=== PATIENT | female | born 1950 | race African-American/Black ===

== ENCOUNTER 2017-09-19 14:49 | Emergency (ER) | payer MEDICARE, MEDICAID ==
[~2017-09-19] VITALS: Ht 170.2 cm; Wt 127.0 kg
[2017-09-19] MEDS ORDERED: FURO20TA4 PO (15:03)
[2017-09-19] MEDS ORDERED: CALCIUM (15:03)
[2017-09-19] MEDS ORDERED: GLIM2TAB2 PO (15:03)
[2017-09-19] MEDS ORDERED: ATOR20TA65 PO (15:03)
[2017-09-19] MEDS ORDERED: GABA300S PO (15:03)
[2017-09-19] MEDS ORDERED: LIRA0.6P2 SQ (15:03)
[2017-09-19] MEDS ORDERED: INDA2.5T5 PO (15:03)
[2017-09-19] MEDS ORDERED: INSU100I22 SQ (15:03)
[2017-09-19] MEDS ORDERED: INSASP SUBCUT (15:03)
[2017-09-19] MEDS ORDERED: ASPI-986 PO (15:03)
[2017-09-19] MEDS ORDERED: ASPI-1159 PO (15:03)
[2017-09-19] MEDS ORDERED: AMIT25TA9 PO (15:03)
[2017-09-19] MEDS ORDERED: ATEN50TA PO (15:03)
[2017-09-19] MEDS ORDERED: ISOS60TA4 PO (15:03)
[2017-09-19] MEDS ORDERED: DIPH25CA83 PO (15:03)
[2017-09-19] MEDS ORDERED: ACETAMINOPHEN WITH CODEINE 300/30MG TABLET PO ONE (17:30)
[2017-09-19 18:42] VITALS: BP 173/81
== END 2017-09-19 18:43 | disposition home or self-care (01) ==
LOC: ER 15:18
DX: R07.89 Other chest pain (principal); I10 Essential (primary) hypertension; E78.00 Pure hypercholesterolemia, unspecified; E11.9 Type 2 diabetes mellitus without complications; Z90.710 Acquired absence of both cervix and uterus; Z79.82 Long term (current) use of aspirin; Z79.4 Long term (current) use of insulin
CPT/HCPCS: 71010; 93005; 99284

== ENCOUNTER 2023-07-09 17:01 | Inpatient (IN) | payer MEDICARE, MEDICAID ==
[~2023-07-09] VITALS: Ht 170.2 cm; Wt 120.2 kg
[~2023-07-09 17:01] MED LIST: AMIT25TA9 PO; ASPI-1497 PO; ASPI-986 PO; ATEN50TA PO; ATOR20TA65 PO; CALCIUM; DIPH25CA83 PO; FURO20TA4 PO; GABA300S4 PO; GLIM2TAB30 PO; INDA2.5T5 PO; INSASP SUBCUT; INSU100I22 SQ; ISOS60TA76 PO; LIRA0.6P2 SQ
[2023-07-09 18:08] LABS: BASOPHILS % 0.4 % (0.0-2.0); EOSINOPHILS % 0.9 % (0.0-5.0); HEMOGLOBIN. 11.3 g/dL (12.0-16.0); LYMPHOCYTES % 32.6 % (20.0-50.0); MEAN CORPUSCULAR HEMOGLOBIN 27.9 pg (28.0-32.0); MEAN CORPUSCULAR HGB CONC 32.2 g/dL (31.0-37.0); MEAN CORPUSCULAR VOLUME 86.5 fL (81.0-99.0); MEAN PLATELET VOLUME 8.5 fl (7.4-10.4); MONOCYTES % 6.4 % (2.0-8.0); NEUTROPHILS % 59.7 % (40.0-76.0); PLATELET 276 x1000/uL (130-400); RED BLOOD CELL COUNT 4.04 mill/uL (4.2-5.4); WHITE BLOOD COUNT 7.8 x1000/uL (4.5-11.0)
[2023-07-09 18:14] LABS: CHLORIDE 109 mEq/L (98-107); INDEX HEMOLYSI 1 (1-3); INDEX ICTERIC 1 (1-4); INDEX LIPEMIC 1 (1-3); POTASSIUM 3.9 mEq/L (3.5-5.1); SODIUM 139 mEq/L (136-145)
[2023-07-09 18:23] LABS: ALANINE AMINOTRANSFERASE 36 IU/L (13-61); ASPARTATE AMINOTRANSFERASE 23 IU/L (15-37); BILIRUBIN TOTAL 0.8 mg/dL (0.1-1.0); CALCIUM 9.1 mg/dL (8.5-10.1); CARBON DIOXIDE 23 mEq/L (21-32); CREATININE 1.4 mg/dL (0.6-1.3); GLUCOSE 386 mg/dL (70-105); PROTEIN TOTAL 7.6 g/dL (6.0-8.3); UREA NITROGEN BLOOD 25 mg/dL (7-21)
[2023-07-09] MEDS ORDERED: SODIUM CHLORIDE 0.9% 1,000 ML IV ONE (19:00)
[2023-07-09 21:40] LABS: CLARITY URINE CLOUDY (CLEAR); COLOR URINE YELLOW (YELLOW); GLUCOSE URINE 3+ (NEGATIVE); KETONES URINE 1+ (NEGATIVE); LEUKOCYTE ESTERASE URINE NEGATIVE (NEGATIVE); NITRITE URINE NEGATIVE (NEGATIVE); OCCULT BLOOD URINE 3+ (NEGATIVE); PROTEIN URINE 4+ (NEGATIVE); SPECIFIC GRAVITY URINE 1.022 (1.005-1.030); UROBILINOGEN URINE 0.2 E.U./dL (0.2-1.0)
[2023-07-09 22:14] LABS: BACTERIA URINE 2+; SQUAMOUS EPITHELIAL CELL URINE 1+ /lpf (RARE/1+); YEAST URINE 2+
[2023-07-09 22:16] LABS: RBC URINE 25-50 /hpf (0-2)
[2023-07-09] MEDS ORDERED: ZOLPIDEM TARTRATE 5MG TABLET PO PRN (23:45)
[2023-07-09] MEDS ORDERED: ACETAMINOPHEN 325MG TABLET PO PRN (23:45)
[2023-07-09] MEDS ORDERED: DIPHENHYDRAMINE 50MG/ML VIAL IV PRN (23:45)
[2023-07-09] MEDS ORDERED: CLONIDINE 0.1MG TABLET PO ONE (23:45)
[2023-07-09] MEDS ORDERED: LOPERAMIDE HCL 2MG CAPSULE PO PRN (23:45)
[2023-07-09] MEDS ORDERED: DEXTROSE 50% WATER 50ML SYRINGE IV PRN (23:45)
[2023-07-09] MEDS: SODIUM CHLORIDE 0.9% 1,000 ML IV SCH (23:45)
[2023-07-09] MEDS ORDERED: ONDANSETRON HCL 4MG/2ML INJ IV PRN (23:45)
[2023-07-10] VITALS: BP 202/59; PULSE 70; RESP 20; TEMP 98.5
[2023-07-10 01:00] VITALS: BP 178/78; PULSE 69; RESP 19; TEMP 98.8
[2023-07-10] MEDS: ACETAMINOPHEN 325MG TABLET PO PRN ×2 (01:07→20:55)
[2023-07-10] MEDS: INSULIN GLARGINE 100 UNITS/ML SUBCUT SCH ×2 (01:12→20:56)
[2023-07-10 04:00] VITALS: BP 197/62; PULSE 63; RESP 18; TEMP 98
[2023-07-10] MEDS: GABAPENTIN 300MG CAPSULE PO SCH ×3 (06:00→20:55)
[2023-07-10] MEDS: CLONIDINE 0.1MG TABLET PO PRN (06:19)
[2023-07-10] MEDS: BLOOD SUGAR DIAGNOSTIC STRIP TEST SCH ×4 (06:49→20:53)
[2023-07-10] MEDS: FLUCONAZOLE 100MG TABLET PO SCH (08:46)
[2023-07-10] MEDS: ASPIRIN 81MG EC TABLET PO SCH (08:46)
[2023-07-10] MEDS: ATENOLOL 50 MG TABLET PO SCH (08:47)
[2023-07-10] MEDS: INSULIN LISPRO 100 UNITS/ML SUBCUT SCH ×4 (08:57→20:56)
[2023-07-10] MEDS: SODIUM CHLORIDE 0.9% 1,000 ML IV SCH ×2 (09:45→19:45)
[2023-07-10 20:00] VITALS: BP 171/76; PULSE 64; RESP 17; TEMP 97.4
[2023-07-10] MEDS ORDERED: AMITRIPTYLINE 25MG TABLET PO SCH (21:00)
[2023-07-10] MEDS ORDERED: ATORVASTATIN CALCIUM 20MG TABLET PO SCH (21:00)
[2023-07-11] VITALS: BP 120/68; PULSE 68; RESP 17; TEMP 97.2
[2023-07-11 04:00] VITALS: BP 181/71; PULSE 79; RESP 18; TEMP 99.3
[2023-07-11] MEDS: SODIUM CHLORIDE 0.9% 1,000 ML IV SCH ×2 (05:45→15:46)
[2023-07-11] MEDS: GABAPENTIN 300MG CAPSULE PO SCH ×2 (06:59→12:59)
[2023-07-11] MEDS: CLONIDINE 0.1MG TABLET PO PRN (06:59)
[2023-07-11] MEDS: BLOOD SUGAR DIAGNOSTIC STRIP TEST SCH ×2 (07:09→11:32)
[2023-07-11 07:47] VITALS: BP 175/84; PULSE 54; RESP 20; TEMP 98
[2023-07-11] MEDS: INSULIN LISPRO 100 UNITS/ML SUBCUT SCH ×2 (07:50→11:32)
[2023-07-11 08:02] LABS: T4 FREE 1.22 ng/dL (0.76-1.46); THYROID STIMULATING HORMONE 2.4 uIU/mL (0.36-3.74)
[2023-07-11 08:19] LABS: CORTISOL 13.9 ucg/dL
[2023-07-11] MEDS: ASPIRIN 81MG EC TABLET PO SCH (08:54)
[2023-07-11] MEDS: FLUCONAZOLE 100MG TABLET PO SCH (08:54)
[2023-07-11] MEDS: ATENOLOL 50 MG TABLET PO SCH (08:54)
[2023-07-11 09:08] LABS: FOLIC ACID (FOLATE) SERUM 9.2 ng/mL (>5.38)
[2023-07-11 11:48] VITALS: BP 118/76; PULSE 50; RESP 20; TEMP 98.1
[2023-07-11 15:53] VITALS: BP 139/62; PULSE 65; TEMP 97.8; O2SAT 98
[2023-07-11 16:13] VITALS: BP 196/94; PULSE 52; RESP 19; TEMP 98.6
== END 2023-07-11 16:43 | disposition home or self-care (01) | DRG 683 ==
LOC: ER 17:26 → 6EST 21:20
PROVIDERS: ADMIT Internal Medicine; ATTEND Internal Medicine
DX: N17.9 Acute kidney failure, unspecified (principal); Z68.41 Body mass index [BMI] 40.0-44.9, adult; E11.65 Type 2 diabetes mellitus with hyperglycemia; E86.0 Dehydration; I12.9 Hypertensive chronic kidney disease with stage 1 through stage 4 chronic kidney disease, or unspecified chronic kidney disease; E78.00 Pure hypercholesterolemia, unspecified; M19.90 Unspecified osteoarthritis, unspecified site; E11.22 Type 2 diabetes mellitus with diabetic chronic kidney disease; E11.319 Type 2 diabetes mellitus with unspecified diabetic retinopathy without macular edema; E11.40 Type 2 diabetes mellitus with diabetic neuropathy, unspecified; D64.9 Anemia, unspecified; E04.9 Nontoxic goiter, unspecified; N18.9 Chronic kidney disease, unspecified; E66.01 Morbid (severe) obesity due to excess calories; K80.20 Calculus of gallbladder without cholecystitis without obstruction; M47.816 Spondylosis without myelopathy or radiculopathy, lumbar region; Z90.710 Acquired absence of both cervix and uterus; Z79.4 Long term (current) use of insulin; Z79.899 Other long term (current) drug therapy; Z80.3 Family history of malignant neoplasm of breast; Z82.1 Family history of blindness and visual loss; Z83.3 Family history of diabetes mellitus
CPT/HCPCS: 36415; 74176; 80053; 81003; 82533; 82607; 82746; 82962; 83036; 84439; 84443; 85025; 87015; 87045; 87427; 87449; 87493; 89055; 97162; 99285; C1893; J1815; J7030

== ENCOUNTER → 2023-12-03 | Day surgery (SDC) | payer MEDICARE, MEDICAID ==
[~2023-12-03] VITALS: Ht 170.2 cm; Wt 113.4 kg
[~2023-12-03] MED LIST changes: +ACET-2708 PO; +ALLO100T PO; +AMIN960L13 PO; +AMLO10TA80 PO; +ASCO-339 PO; -ASPI-986 PO; -ATEN50TA PO; +CALC0.253 PO; -CALCIUM; +COLL30OI TP; +CRAN250C PO; +DAPA10TA PO; -DIPH25CA83 PO; +DOCU-150 PO; +FENTANYL CITRATE/PF 50MCG/ML 2ML VIAL ONE; +FERR325T6 PO; +GABA-532 PO; -GABA300S4 PO; -GLIM2TAB30 PO; +GUAI-1268 PO; +HEPARIN 1000 UNITS/ML 10ML ONE; +HYDR-4001 PO; -INDA2.5T5 PO; -INSASP SUBCUT; +INSLIS SUBCUT; -INSU100I22 SQ; +INSU100I28 SQ; +IODIXANOL 320MG/ML 100 ML BOTTLE IV ONE; +IPRA3AMP31 IH; -ISOS60TA76 PO; +LIDOCAINE HCL 1% 20ML VIAL (Pyxis) INJ ONE; -LIRA0.6P2 SQ; +LISI10TA26 PO; +MAG30ORA PO; +MIDAZOLAM HCL 2 MG/2 ML VIAL ONE; +MOM PO; +MULT-230 PO; +SODIUM CHLORIDE 0.9% 500 ML IV ONE; +TOPUD PO
[2023-12-03 10:29] LABS: BASOPHILS % 0.3 % (0.0-2.0); EOSINOPHILS % 4.2 % (0.0-5.0); HEMATOCRIT. 33.6 % (36.0-48.0); HEMOGLOBIN. 10.8 g/dL (12.0-16.0); LYMPHOCYTES % 51.5 % (20.0-50.0); MEAN CORPUSCULAR HEMOGLOBIN 26.9 pg (28.0-32.0); MEAN CORPUSCULAR HGB CONC 32.2 g/dL (31.0-37.0); MEAN CORPUSCULAR VOLUME 83.6 fL (81.0-99.0); MONOCYTES % 6.4 % (2.0-8.0); NEUTROPHILS % 37.6 % (40.0-76.0); PLATELET 311 x1000/uL (130-400); RED BLOOD CELL COUNT 4.02 mill/uL (4.2-5.4); RED CELL DISTRIBUTION WIDTH 19.5 % (11.6-14.6); WHITE BLOOD COUNT 6.6 x1000/uL (4.5-11.0)
[2023-12-03 10:38] LABS: CALCIUM 8.8 mg/dL (8.7-10.4); CREATININE 1.5 mg/dL (0.6-1.0); POTASSIUM 3.3 mEq/L (3.5-5.1)
[2023-12-03 10:43] LABS: PARTIAL THROMBOPLASTIN TIME 26.8 sec (23.4-31.0); PROTHROMBIN TIME 10.7 sec (9.6-11.0)
== END | disposition home or self-care (01) ==
LOC: CCL 09:37
PROVIDERS: ATTEND Surgery Vascular Surgery
DX: L97.519 Non-pressure chronic ulcer of other part of right foot with unspecified severity (principal); I73.9 Peripheral vascular disease, unspecified; I10 Essential (primary) hypertension; E66.9 Obesity, unspecified; E11.40 Type 2 diabetes mellitus with diabetic neuropathy, unspecified; E78.00 Pure hypercholesterolemia, unspecified; I13.0 Hypertensive heart and chronic kidney disease with heart failure and stage 1 through stage 4 chronic kidney disease, or unspecified chronic kidney disease; I50.9 Heart failure, unspecified; N18.9 Chronic kidney disease, unspecified; Z79.01 Long term (current) use of anticoagulants; Z79.4 Long term (current) use of insulin; Z79.899 Other long term (current) drug therapy; Z90.710 Acquired absence of both cervix and uterus; Z98.890 Other specified postprocedural states
CPT/HCPCS: 80048; 85025; 85610; 85730; 36415; 36246; 75710; C1893; C1760; C1725; J3010; Q9967; J1644 ×2; J3490; J2250; Z7610 ×7; C1769